=== PATIENT | female | born 2000 | race Caucasian/White ===

== ENCOUNTER 2024-07-17 17:11 | Inpatient (IN) | payer MEDICAID, SELFPAY ==
[2024-07-17] MEDS ORDERED: Ondansetron PF 4 MG/2 ML Vial ONE (17:59)
[2024-07-17 18:06] LABS: #Basophils 0.04 10x3/uL (0.0-0.2); #Eosinophils 0.09 10x3/uL (0.0-0.5); #Monocytes 1.12 10x3/uL (0.0-1.1); #Neutrophils 7.82 10x3/uL (1.5-8.4); %Basophils 0.4 % (0.0-2.0); %Eosinophils 0.8 % (0.0-6.0); %Lymphocytes 15.7 % (18.0-47.0); %Monocytes 10.3 % (0.0-10.0); Hematocrit 41.7 % (34.9-44.5); Hemoglobin 14.4 g/dL (12.0-15.5); Mean Corpuscular HGB CONC 34.5 g/dL (32.0-36.0); Mean Corpuscular Hemoglobin 26.7 pg (27.0-33.0); Mean Corpuscular Volume 77.4 fL (81.6-98.3); Mean Platelet Volume 11.1 fL (7.4-10.4); Platelet Count 317 10x3/uL (150-450); RBC Distribution Width 13.6 % (11.5-14.5); Red Blood Cell (RBC) Count 5.39 10x6/uL (3.90-5.03); White Blood Cell (WBC) Count 10.86 10x3/uL (3.5-10.5)
[2024-07-17 18:26] LABS: ALT (SGPT) 876 U/L (8-55); AST (SGOT) 204 U/L (5-34); Albumin 3.7 g/dL (3.5-5.0); Alkaline Phosphatase 136 U/L (40-110); Anion Gap 18 mmol/L (10-20); BUN (Urea Nitrogen) Less than 4 mg/dL (7.0-18.7); Bilirubin, Total 0.9 mg/dL (0.2-1.2); Calc. Creatinine Clearance 0 mL/min (70-130); Calcium 9.9 mg/dL (7.8-10.44); Carbon Dioxide 16 mmol/L (22-29); Chloride 103 mmol/L (98-107); Estimated GFR 131; Glucose 89 mg/dL (70-105); Magnesium 1.7 mg/dL (1.6-2.6); Potassium 2.8 mmol/L (3.5-5.1); Protein, Total 7.7 g/dL (6.0-8.3); Sodium 134 mmol/L (136-145)
[2024-07-17] MEDS ORDERED: Potassium Chloride 20 MEQ TAB ONE (18:49)
[2024-07-17] MEDS ORDERED: Potassium Chloride 20 MEQ (100 mL) BAG ONE (18:49)
[2024-07-17] MEDS ORDERED: Magnesium 2 GM/50 ML BAG (IN WATER) ONE (19:07)
[2024-07-17] MEDS ORDERED: hydrALAZINE 20 MG/ML VIAL SLOW IVP PRN (20:21)
[2024-07-17] MEDS ORDERED: Acetaminophen 500 MG TAB PO PRN (20:21)
[2024-07-17] MEDS ORDERED: Ondansetron PF 4 MG/2 ML Vial IVP PRN (20:32)
[2024-07-17] MEDS ORDERED: Ondansetron ODT 4 MG TAB PO PRN (20:32)
[2024-07-17] MEDS ORDERED: Promethazine HCl 6.25 MG/5 ML Syrup PO PRN (20:33)
[2024-07-17 20:38] LABS: Bilirubin Neg (Negative); Blood, Urine 10 (Negative); Clarity Cloudy (Clear); Glucose, Urine (Dipstick) Normal (Negative); Ketone, Urine 150 mg/dL (Negative); Leukocyte 100 (Negative); Nitrite Negative (Negative); Protein, Urine (Dipstick) 30 mg/dl (Neg-Trace); Specific Gravity, Urine 1.025 (1.005-1.030)
[2024-07-17] MEDS ORDERED: Metoclopramide HCl 10 MG TAB PO PRN (20:38)
[2024-07-17 20:48] LABS: Bacteria/HPF 1+ HPF (None Seen); CAUTI Indications for Culture Pregnancy; Mucous/LPF Rare LPF (<2+); RBC/HPF 0-3 HPF (0-3); Urine Culture Reflex Yes Yes; WBC/HPF 21-50 HPF (0-3)
[2024-07-17 22:21] LABS: Syphilis Antibody Nonreactive (Nonreactive); Syphilis Antibody Index 0.05 S/CO (<1.00 Non-Reactive)
[2024-07-17 22:38] VITALS: BMI 37.3
[2024-07-17] MEDS: Dextrose 5%-Lactated Ringers 1,000 ML IV SCH (23:16)
[2024-07-18] MEDS: Lactated Ringer's 1,000 ML IV SCH (00:05)
[2024-07-18] MEDS: Ondansetron PF 4 MG/2 ML Vial IVP PRN (00:26)
[2024-07-18 04:44] LABS: #Basophils 0.04 10x3/uL (0.0-0.2); #Eosinophils 0.03 10x3/uL (0.0-0.5); #Neutrophils 4.37 10x3/uL (1.5-8.4); %Basophils 0.5 % (0.0-2.0); %Eosinophils 0.4 % (0.0-6.0); %Lymphocytes 27.2 % (18.0-47.0); %Monocytes 13.2 % (0.0-10.0); %Neutrophils 57.9 % (40.0-75.0); Hematocrit 32.4 % (34.9-44.5); Hemoglobin 11.6 g/dL (12.0-15.5); Mean Corpuscular HGB CONC 35.8 g/dL (32.0-36.0); Mean Corpuscular Hemoglobin 27.8 pg (27.0-33.0); Mean Corpuscular Volume 77.5 fL (81.6-98.3); Mean Platelet Volume 10.4 fL (7.4-10.4); Platelet Count 251 10x3/uL (150-450); RBC Distribution Width 13.8 % (11.5-14.5); Red Blood Cell (RBC) Count 4.18 10x6/uL (3.90-5.03); White Blood Cell (WBC) Count 7.55 10x3/uL (3.5-10.5)
[2024-07-18] MEDS: Promethazine 25 MG TAB PO PRN (04:50)
[2024-07-18 05:31] LABS: ALT (SGPT) 574 U/L (8-55); AST (SGOT) 128 U/L (5-34); Albumin 2.8 g/dL (3.5-5.0); Alkaline Phosphatase 97 U/L (40-110); Anion Gap 13 mmol/L (10-20); BUN (Urea Nitrogen) Less than 4 mg/dL (7.0-18.7); Bilirubin, Total 0.8 mg/dL (0.2-1.2); Calc. Creatinine Clearance 308 mL/min (70-130); Calcium 8.5 mg/dL (7.8-10.44); Carbon Dioxide 17 mmol/L (22-29); Chloride 109 mmol/L (98-107); Estimated GFR 138; Globulin 2.5 g/dL (2.4-3.5); Glucose 80 mg/dL (70-105); Potassium 2.8 mmol/L (3.5-5.1); Protein, Total 5.3 g/dL (6.0-8.3); Sodium 136 mmol/L (136-145)
[2024-07-18] MEDS: Pantoprazole 40 MG DR.TAB PO SCH (09:09)
[2024-07-18] MEDS: Potassium Chloride 20 MEQ TAB PO SCH ×2 (09:09→23:28)
[2024-07-18] MEDS: Cephalexin 500 MG CAP PO SCH (09:09)
[2024-07-18 12:28] LABS: HBSAB Concentration Less than 8.00 mIU/mL; Hep B Surf AB NONREACTIVE (NonReactive); Hep C IgG Ab NONREACTIVE S/CO (NonReactive); Hep C Index 0.22 S/CO (0-0.79)
[2024-07-18 19:15] LABS: Magnesium 1.5 mg/dL (1.6-2.6)
[2024-07-18] MEDS: Magnesium 2 GM/50 ML(in water) 2 GM in Premix 1 BAG IVPB SCH (20:26)
[2024-07-18 22:11] LABS: Phosphorus 1.9 mg/dL (2.3-4.7); Potassium 2.8 mmol/L (3.5-5.1)
[2024-07-18] MEDS: Ondansetron ODT 4 MG TAB PO PRN (23:26)
[2024-07-18] MEDS: Potassium Phosphate 9 MMOL in Sodium Chloride 0.9% 100 ML IVPB SCH (23:30)
[2024-07-19 05:11] LABS: ALT (SGPT) 457 U/L (8-55); AST (SGOT) 84 U/L (5-34); Albumin 2.7 g/dL (3.5-5.0); Alkaline Phosphatase 86 U/L (40-110); Anion Gap 12 mmol/L (10-20); BUN (Urea Nitrogen) Less than 4 mg/dL (7.0-18.7); Bilirubin, Total 0.7 mg/dL (0.2-1.2); Calc. Creatinine Clearance 290 mL/min (70-130); Calcium 8.5 mg/dL (7.8-10.44); Carbon Dioxide 20 mmol/L (22-29); Chloride 111 mmol/L (98-107); Estimated GFR 136; Globulin 2.4 g/dL (2.4-3.5); Glucose 86 mg/dL (70-105); Magnesium 1.9 mg/dL (1.6-2.6); Potassium 3.5 mmol/L (3.5-5.1); Protein, Total 5.1 g/dL (6.0-8.3); Sodium 139 mmol/L (136-145)
[2024-07-19 05:27] LABS: Phosphorus 3.4 mg/dL (2.3-4.7)
[2024-07-19 13:10] VITALS: BMI 37.3
[2024-07-19 15:30] LABS: Potassium 2.9 mmol/L (3.5-5.1)
[2024-07-19] MEDS: Potassium Chloride 20 MEQ TAB PO SCH (20:45)
[2024-07-19 21:35] LABS: Magnesium 1.7 mg/dL (1.6-2.6)
[2024-07-20] MEDS: Magnesium 2 GM/50 ML(in water) 2 GM in Premix 1 BAG IVPB SCH (00:01)
[2024-07-20 06:05] LABS: Anion Gap 10 mmol/L (10-20); BUN (Urea Nitrogen) Less than 4 mg/dL (7.0-18.7); Calc. Creatinine Clearance 301 mL/min (70-130); Calcium 8.6 mg/dL (7.8-10.44); Carbon Dioxide 22 mmol/L (22-29); Chloride 109 mmol/L (98-107); Estimated GFR 137; Glucose 90 mg/dL (70-105); Magnesium 2.2 mg/dL (1.6-2.6); Phosphorus 3.1 mg/dL (2.3-4.7); Potassium 3.4 mmol/L (3.5-5.1); Sodium 138 mmol/L (136-145)
[2024-07-20] MEDS: Potassium Chloride 20 MEQ TAB PO SCH (09:02)
[2024-07-20 12:17] LABS: ALT (SGPT) 378 U/L (8-55); AST (SGOT) 77 U/L (5-34); Potassium 3.3 mmol/L (3.5-5.1)
[2024-07-21 05:36] LABS: ALT (SGPT) 334 U/L (8-55); AST (SGOT) 61 U/L (5-34); Albumin 2.4 g/dL (3.5-5.0); Alkaline Phosphatase 80 U/L (40-110); Anion Gap 10 mmol/L (10-20); BUN (Urea Nitrogen) Less than 4 mg/dL (7.0-18.7); Bilirubin, Total 0.6 mg/dL (0.2-1.2); Calc. Creatinine Clearance 343 mL/min (70-130); Calcium 8.4 mg/dL (7.8-10.44); Carbon Dioxide 22 mmol/L (22-29); Chloride 108 mmol/L (98-107); Estimated GFR 142; Globulin 2.4 g/dL (2.4-3.5); Glucose 92 mg/dL (70-105); Potassium 3.2 mmol/L (3.5-5.1); Protein, Total 4.8 g/dL (6.0-8.3); Sodium 137 mmol/L (136-145)
[2024-07-21] MEDS: Potassium Chloride 20 MEQ TAB PO SCH (09:28)
[2024-07-21 11:25] VITALS: BP 112/55; TEMP 98
[2024-07-21] MEDS ORDERED: Potassium Chloride 20 MEQ TAB PO SCH ×2 (12:00→17:00)
== END 2024-07-21 12:38 | disposition home or self-care (01) | DRG 832 ==
LOC: CSHERS 17:11 → CSHPED 21:58 → OBSVTOIN 07-19 14:32
PROVIDERS: ADMIT Obstetrics & Gynecology; ATTEND Obstetrics & Gynecology
DX: O21.1 Hyperemesis gravidarum with metabolic disturbance (principal); O23.41 Unspecified infection of urinary tract in pregnancy, first trimester; Z3A.12 12 weeks gestation of pregnancy
CPT/HCPCS: 36415; 76705; 76801; 80048; 80053; 81001; 82010; 83735; 84100; 84450; 84460; 84702; 85025; 86706; 86762; 86780; 86803; 87077; 87086; 87186; 96361; 96365; 96366; 96367; 96368; 96375; 96376; G0378; J2405; J3475; J3480; J7120; Q0162; Q0169

== ENCOUNTER 2025-02-11 14:54 | Emergency (ER) | payer OTHER | END 2025-02-11 18:17 | disposition home or self-care (01) | LOC: CSHERS 14:54 | DX: S60.212A Contusion of left wrist, initial encounter (principal); W22.8XXA Striking against or struck by other objects, initial encounter | CPT/HCPCS: 99283 ==